=== PATIENT | male | born 2000 | race African-American/Black ===

== ENCOUNTER 2024-01-23 20:17 | Emergency (ER) | payer SELFPAY ==
[2024-01-23 20:23] VITALS: BP 120/72; PULSE 81; RESP 16; TEMP 36.3; O2SAT 97; BMI 23.1
--- NOTE | 2024-01-23 20:54 | ED_ITS ---
HPI - General Adult General: Chief complaint: General Medical Stated complaint: burning with urination Time Seen by Provider: 01/23/24 20:38 History of Present Illness: Patient presents to the ER with complaints of burning when he urinates. Patient says he thinks he has a UTI and needs an antibiotic. Patient denies having this in the past. Patient said this been going on several days. Review of Systems General: Reports: 10 or more systems reviewed and unremarkable except in HPI and below Physical Exam Const: COMMON NORMALS: no acute distress, average body habitus, patient oriented x3, no limitations, healthy appearing, alert and well nourished Neck/C-Spine: COMMON NORMALS: no JVD Chest: COMMONS NORMALS: normal inspection of the chest and normal palpation of entire chest wall Resp: COMMON NORMALS: normal respiratory effort, No retractions, No use of accessory muscles and clear to auscultation bilaterally AUSCULTATION: clear to auscultation bilaterally Cardio: COMMON NORMALS: no JVD, regular rate, regular rhythm, S1 normal heart sound present, S2 normal heart sound present, No gallops present (Cardio), No clicks present (Cardio), No murmurs present (Cardio) and No rub (Cardio) RATE: regular rate RHYTHM: regular rhythm HEART SOUNDS: S1 normal heart sound present and S2 normal heart sound present GI: COMMON NORMALS: Normal to inspection, nondistended, normoactive bowel sounds present, Soft to palpation, non-tender, No hepatosplenomegaly present and no masses PALPATION: Yes Soft to palpation and Yes No hepatosplenomegaly present Neuro: COMMON NORMALS: patient oriented x3 SENSORIUM/ORIENTATION: Yes alert Course Vital Signs: Vital signs: Vital Signs Temperature 97.4 F L 01/23/24 20:23 Pulse Rate 81 01/23/24 20:23 Respiratory Rate 16 01/23/24 20:23 Blood Pressure 120/72 01/23/24 20:23 Pulse Oximetry 97 01/23/24 20:[address] [facility] - General Adult Medical Decision Making Urinalysis showed 2+ blood, 2+ leukocyte Estrace, 55-80 white blood cells. Gonorrhea and Chlamydia are pending. Patient will be given Cipro here in ER and a prescription sent home for him. Patient be discharged home to follow-up with his PCP Differential Diagnosis UTI, dysuria Medical Records I reviewed the patient's medical records. Lab Data I reviewed the patient's lab results. Laboratory Results Urine Color Yellow (Yellow) 01/23/24 20: Urine Appearance Sl hazy (CLEAR) A 01/23/24 20: Urine pH 6 (5-7) 01/23/24 20:29 Ur Specific Lawson 1.020 (1.005-1.030) 01/23/24 20: Urine Protein Trace (Negative) 01/23/24 20: Urine Glucose (UA) Norm (Normal) 01/23/24 20: Urine Ketones 1+ (Negative) H 01/23/24 20: Urine Blood 2+ (Negative) H 01/23/24 20: Urine Nitrate Negative (Negative) 01/23/24 20: Urine Bilirubin Neg (Negative) 01/23/24 20: Urine Urobilinogen 4 mg/dL (Negative) H 01/23/24 20:29 Ur Leukocyte Esterase 2+ (Negative) H 01/23/24 20:29 Urine RBC 0-4 /hpf (0-2) H 01/23/24 20:29 Urine WBC 55-80 /hpf (0-5) H 01/23/24 20:29 Ur Squamous Epith Cells None /hpf (0-5) 01/23/24 20: Amorphous Sediment Not Reportable 01/23/24 20: Urine Bacteria Trace /hpf (NONE) 01/23/24 20: Urine Mucus 1+ /hpf 01/23/24 20:29 No radiology studies performed this visit Discharge Plan Discharge Patient Disposition: Home Clinical Impression: Urinary tract infection Qualifiers: Urinary tract infection type: acute cystitis Hematuria presence: with hematuria Qualified Code(s): N30.01 - Acute cystitis with hematuria Condition: Stable Prescriptions: New Bactrim DS 800-160 mg tablet 1 tab PO BID Qty: 14 0RF Discharge Orders: Discharge ED (Routine); Ordered 01/23/24 Ordered By: Chapincito Flores Patient Instructions: Urinary Tract Infection in Men (ED) Activity Restrictions/Additional Instructions: Please take all your antibiotics as directed. Please follow-up with your family practice physician within the next 7 to 10 days for recheck. Coding Level of Care Code ED Apprenticeship Representative for Colten Wright
[2024-01-23 21:08] LABS: Bilirubin Urine Neg (Negative); Blood Urine 2+ (Negative); Glucose Urine UA Norm (Normal); Ketones Urine 1+ (Negative); Nitrate Urine Negative (Negative); Protein Urine Trace (Negative); Urine Appearance SL Hazy (CLEAR); Urine Color Yellow (Yellow); pH Urine 6 (5-7)
[2024-01-23 21:09] LABS: Add Urine Microscopic? YES; Leukocyte Esterase Urine 2+ (Negative); Urobilinogen Urine 4 mg/dL (Negative)
[2024-01-23 21:10] LABS: Bacteria Urine TRACE /hpf; Mucus Urine 1+ /hpf; RBC Urine 0-4 /hpf (0-2); WBC Urine 55-80 /hpf (0-5)
[2024-01-23 21:11] LABS: Add Urine Culture? Yes
[2024-01-23] MEDS: sulfamethoxazole-trimeth DS 160-800 mg Tablet 1 TAB PO (21:19)
[2024-01-25 17:05] LABS: Chlamydia Trachomatis RNA TMA NOT DETECTED (NOT DETECTED); Neisseria Gonorrhoeae RNA, TMA DETECTED (NOT DETECTED)
== END 2024-01-23 21:23 | disposition home or self-care (01) ==
PROVIDERS: Emergency Medicine; Emergency Provider Emergency Medicine
DX: N30.01 Acute cystitis with hematuria (principal)
CPT/HCPCS: 81001; 87086; 87491; 87591; 99283

== ENCOUNTER → 2024-01-31 17:43 | Outpatient (BNVA) | payer SELFPAY | PROVIDERS: Visit Provider Nurse Practitioner | DX: R39.9 Unspecified symptoms and signs involving the genitourinary system (principal); A54.9 Gonococcal infection, unspecified | CPT/HCPCS: 81000; 87086 ==